=== PATIENT | female | born 2005 | race African-American/Black ===

== ENCOUNTER 2023-09-20 11:35 | Emergency (ER) | payer MEDICAID, SELFPAY ==
--- NOTE | 2023-09-20 | ECG_ITS ---
Test Reason : CHEST DISCOMFORT Blood Pressure : / mmHG Vent. Rate : 092 BPM Atrial Rate : 092 BPM P-R Int : 120 ms QRS Dur : 090 ms QT Int : 342 ms P-R-T Axes : 079 026 012 degrees QTc Int : 422 ms Normal sinus rhythm with sinus arrhythmia Normal ECG No previous ECGs available Referred By: Ladan Banda Electronically Signed By:Elier Ontiveros
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
[2023-09-20 11:55] VITALS: BP 106/60; PULSE 108; RESP 24; O2SAT 100; BMI 37.8
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
[2023-09-20] MEDS: LORazepam 1 MG TABLET PO (12:08)
[2023-09-20 12:15] VITALS: PULSE 92; RESP 18; O2SAT 98
[2023-09-20 12:29] LABS: MANUAL DIFF FLAG NO
[2023-09-20 12:34] LABS: Basophils Percent Auto 0.3 % (0-2); Eosinophils Percent Auto 0.3 % (0-4); Hematocrit 38.8 % (37.0-47.0); Hemoglobin 12.1 g/dl (12.0-16.0); Imm Gran Abs Auto 0.03 X10*3/uL (0.00-0.03); Imm Gran Pct Auto 0.4 % (0.0-0.4); Lymphocytes Absolute Auto 1.9 X10*3/uL (1.2-4.9); Lymphocytes Percent Auto 23.8 % (20-40); Mean Corpuscular HGB Conc 31.2 g/dl (31.0-35.0); Mean Corpuscular Volume 70.7 fL (80.0-98.0); Mean Platelet Volume 9.1 fL (9.4-12.3); Monocytes Absolute Auto 0.5 X10*3/uL (0.1-1.2); Neutrophils Absolute Auto 5.3 x10*3/uL (2.0-8.3); Neutrophils Percent Auto 68.2 % (45-73); Platelet Count 358 X10*3/uL (160-400); Red Blood Count 5.49 X10*6/uL (4.20-5.50); Red Cell Distribution Width 18.8 % (11.0-16.0); White Blood Count 7.8 X10*3/uL (4.8-10.8)
[2023-09-20 12:48] LABS: Alanine Aminotransferase 22 U/L (0-31); Albumin Level 4.5 g/dL (3.5-5.0); Alkaline Phosphatase 112 U/L (39-117); Anion Gap 13 (12-20); Aspartate Amino Transferase 17 U/L (5-31); Bilirubin Total 0.6 mg/dL (0.0-1.0); Blood Urea Nitrogen 7 mg/dL (9-16); Calcium 11.1 mg/dL (8.4-10.2); Carbon Dioxide 19 mmol/L (22-29); Chloride 112 mmol/L (96-108); Creatinine Clr Calc Pharmacy 119.5; Estimated Glomerular Filt Rate > 60; Ethanol < 10 mg/dL; Glucose Random 98 mg/dL (60-115); Potassium 3.9 mmol/L (3.3-5.1); Sodium 140 mmol/L (135-145); Total Protein 8.5 g/dL (6.5-8.0)
[2023-09-20 14:31] VITALS: BP 124/64; PULSE 84; RESP 16; TEMP 37.2; O2SAT 99
--- NOTE | 2023-09-20 15:30 | MHC.CARE ---
RAD Team completed [facility] referral for this pt via email. Will follow up tomorrow.
--- NOTE | 2023-09-20 15:45 | MHC.CARE ---
Pt does not meet the criteria for IPLOC and will be discharged home and referred to [facility] for OP therapy and medication management in the community.
== END 2023-09-20 14:32 | disposition home or self-care (01) ==
PROVIDERS: Registered Nurse Emergency; Emergency Provider Emergency Medicine
DX: F41.9 Anxiety disorder, unspecified (principal); R06.4 Hyperventilation; F43.89 Other reactions to severe stress; R07.89 Other chest pain; I49.8 Other specified cardiac arrhythmias; Z79.899 Other long term (current) drug therapy
CPT/HCPCS: 36415; 80053; 80307; 85025; 93005; 99285; S9485

== ENCOUNTER → 2023-09-20 12:02 | Outpatient (BNV) | payer MEDICAID, SELFPAY | PROVIDERS: Emergency Provider Emergency Medicine; Visit Provider Internal Medicine Cardiovascular Disease | DX: R07.89 Other chest pain (principal) | CPT/HCPCS: 93010 ==